=== PATIENT | female | born 1980 | race African-American/Black ===

== ENCOUNTER 2016-11-21 20:02 | Emergency (ER) | payer MEDICAID ==
[~2016-11-21] VITALS: Ht 157.5 cm; Wt 101.6 kg
[2016-11-21 20:28] VITALS: BP 127/86
[2016-11-21] MEDS ORDERED: METOCLOPRAMIDE HCL 5MG/ml INJ 2ml VIAL IV ONE ×2 (20:30→21:15)
[2016-11-21] MEDS ORDERED: SODIUM CHLORIDE 0.9% 1,000 ML IV ONE (20:30)
== END 2016-11-21 21:47 | disposition home or self-care (01) ==
LOC: ER 20:03
DX: O21.0 Mild hyperemesis gravidarum (principal); O23.41 Unspecified infection of urinary tract in pregnancy, first trimester; Z3A.12 12 weeks gestation of pregnancy; Z88.0 Allergy status to penicillin
CPT/HCPCS: 96361; 96374; 99284; J2765; J7030